=== PATIENT | male | born 1995 ===

== ENCOUNTER → 2019-09-07 06:41 | Outpatient (CLI) | payer OTHER, SELFPAY ==
[2019-09-08 00:32] LABS: COVID19 -Nasal RAPID Negative (Negative)
== END ==
PROVIDERS: Referring Provider Nurse Practitioner Obstetrics & Gynecology; Visit Provider Nurse Practitioner Obstetrics & Gynecology
DX: Z11.59 Encounter for screening for other viral diseases (principal)
CPT/HCPCS: 87635